=== PATIENT | male | born 1950 | race Caucasian/White ===

== ENCOUNTER → 2016-10-07 | Emergency (ER) | payer MEDICAID ==
[~2016-10-07] VITALS: Ht 177.8 cm; Wt 70.5 kg
[~2016-10-07] MED LIST: GABA-336 PO; GLIP10TA9 PO; LISI-621 PO; LOVA20TA3 PO; METF850T2 PO; NORMAL SALINE 1,000 ML IV ONE
[2016-10-07 13:00] VITALS: Ht 177.8 cm; Wt 70.5 kg
--- NOTE | 2016-10-07 13:17 | ERPDOC ---
Departure Disposition Decision Date: October 07, 2016 Disposition Decision Time: 15:52 Disposition: 01 DISCHARGED HOME, SELF-CARE Impression Impression Impression: Primary Impression: Seizure-like activity Severity: Moderate Condition: Stable Seen By: Physician only Patient Instructions: Nonepileptic Seizures (ED) Problems/Meds/Labs Reviewed?: Yes Medications reviewed and manag: Yes Additional Instructions: No driving an automobile for 6 months or unless cleared by your physician Follow up care ordered?: Yes Mental Status: Alert, Oriented HPI - CVA/Neuro General Chief Complaint: Seizure Stated Complaint: SEIZURES PAST THREE DAYS Time Seen by Provider: 13:14 Source: patient, family Exam Limitations: no limitations HPI - CVA/NEURO Occurred At: other Onset/Timing: Rapid Associated Symptoms: confusion, nausea/vomiting, seizures, weakness, DENIES: fever/chills, loss of consciousness, numbness in legs/feet, ringing in ears, slurred speech, tingling in legs/feet, trouble walking, vision changes Affected Areas/Deficit Locatio: Right Leg, Left Leg Allergies: Coded Allergies: NKDA (Verified Allergy, Unknown, 10/07/16) Past History Past Medical History Metabolic: diabetes, hypertension ENMT: DENIES: allergies Cardiac: DENIES: CHF, angina Respiratory: DENIES: COPD, asthma GI: DENIES: GERD, ulcers Family History Family PMH: NOT FOUND: alcohol abuse, bipolar, depression, drug abuse, migraines, other (no history of seizures aneurysms or brain tumors), schizophrenia Review of Systems Constitutional Constitutional: weakness, DENIES: appetite decrease, chills, dizziness, fever Eyes Vision: blurring, DENIES: double vision, loss of visual velasquez ENMT Sinuses: DENIES: congestion, rhinorrhea Mouth/Throat: DENIES: scratchy throat, sore throat Cardiovascular Cardiac: DENIES: chest pain, dyspnea on exertion Pulmonary Respiratory: DENIES: cough, dyspnea, sputum, tachypnea GI Upper Abdomen: DENIES: nausea, pain, vomiting Lower Abdomen: DENIES: constipation, diarrhea, pain General: DENIES: frequency, urgency Musculoskeletal General: DENIES: cramps, pain, weakness Integumentary Skin: DENIES: color change, itching, rash Neurological General: DENIES: change in strength, headache, numbness, seizures, weakness Psychiatric Psychiatric: DENIES: depression, emotional instability, irritability, nervousness Endocrine Endocrine: DENIES: heat/cold intolerance Hematologic/Lymphatic Hematologic/Lymphatic: DENIES: anemia Physical Exam General General Nourishment: well nourished, well developed General Body Habitus: well groomed Vitals and Pain First Documented Vital Signs Date Time Temp Pulse Resp B/P Pulse Ox O2 Delivery O2 Flow Rate FiO2 10/07/16 13:00 182/99 10/07/16 13:00 98.3 87 18 98 Room Air Weight: Kilograms: Height (feet): Height (inches): Triage Pain Scale: RN VS reviewed by Provider: Yes Eyes (brief) Eyes Brief: found: EOMI, PERRL ENMT (brief) ENMT Brief: FOUND: TM clear, TM good light reflex, ear canals clear, mucosa moist, normal dentition, NOT FOUND: nasal erythema, nasal exudate, nasal swelling, pharnyx erythema, tonsillar deviation Neck (brief) Neck: NOT FOUND: adenopathy, spasm, tenderness Respiratory (brief) Respiratory: FOUND: clear all velasquez, equal bilaterally, NOT FOUND: rales, wheezes Cardiovascular (brief) Cardiac: FOUND: regular rate, regular rhythm Capillary Refill: <2 sec Abdomen (brief) Abdominal Brief: FOUND: bowel normo active x4, soft, NOT FOUND: tender Lymphatic (brief) Lymphatic Brief: NOT FOUND: adenopathy Musculoskeletal (brief) Musculoskeletal Brief: NOT FOUND: spasm, tenderness Integumentary (brief) Integumentary Brief: FOUND: dry, pink, warm, NOT FOUND: rash Neurologic Mental Status: FOUND: alert, oriented GCS Adult : GCS Eye Opening: (4)Spontaneous GCS Verbal: (5)Oriented GCS Motor: (6)Obeys Commands GCS Total: 15 Cranial Nerves: FOUND: other (cranial nerve II through XII intact) Motor : Motor Side: bilateral Motor Location: biceps, triceps, wrist, finger extensors, finger flexors, quadriceps, hamstring, foot extension, foot flexion, radiopharmacist strength Motor Degree: 5 Sensation: FOUND: soft touch intact x4 ext DTR's : DTR Side: bilateral DTR Location: Biceps, Patellar DTR Grade: 2+ Psychiatric (brief) Psychiatric Brief: FOUND: alert, oriented Differential Diagnoses Considering: Thrombotic CVA, Hemorrhagic CVA, Hypertensive Emergency, Hypo/ hypercalcemia, Hypo/hyperglycemia, Hypo/hypernatremia, Meningitis, Psychogenic, TIA Progress Results/Orders Orders Procedure Category Date Status Time Cmp - Comprehensive LAB 10/07/16 In Process Metabolic 13:14 Cbc W/Auto LAB 10/07/16 Complete Diff-Reflex Manual 13:14 Tsh - Thyroid Stim LAB 10/07/16 In Process Hormone 13:14 Bgm (Ed) EDM 10/07/16 Transmitted 13:14 Ct Head W/O Contrast CT 10/07/16 Resulted 13:14 Iv Lock (Ed Only) EDM 10/07/16 Transmitted 13:14 Oxygen Administration EDM 10/07/16 Transmitted 13:14 Nothing By Mouth (Ed EDM 10/07/16 Transmitted Only) 13:14 Prolactin LAB 10/07/16 In Process 13:14 Normal Saline (Normal PHA 10/07/16 Complete Saline Iv) 13:30 UA, LAB 10/07/16 Complete Dip&Micro(Complete) & 14:18 Lab Results Laboratory Tests Test 10/07/16 13:13 10/07/16 14:18 White Blood Count 11.2T/MM3 Red Blood Count 5.02M/MM3 Hemoglobin 15.4GM/DL Hematocrit 45.6% Mean Corpuscular Volume 90.8UM3 Mean Corpuscular Hemoglobin 30.7UUG Mean Corpuscular Hemoglobin Concent 33.8GM/DL RDW Standard Deviation 44.4FL Platelet Count 203T/MM3 Mean Platelet Volume 10.2UM3 Immature Granulocyte % (Auto) 0.2% Neutrophils (%) (Auto) 68.3% Lymphocytes (%) (Auto) 22.9% Monocytes (%) (Auto) 6.6% Eosinophils (%) (Auto) 1.8% Basophils (%) (Auto) 0.2% Absolute Immature Granulocyte (auto 0.02T/MM3 Absolute Neutrophils (auto) 7.7T/MM3 Absolute Lymphocytes (auto) 2.6T/MM3 Absolute Monocytes (auto) 0.7T/MM3 Absolute Eosinophils (auto) 0.2T/MM3 Absolute Basophils (auto) 0.0T/MM3 Turbidity < 20 Sodium Level 142MEQ/L Potassium Level 3.9MEQ/L Chloride Level 107MEQ/L Carbon Dioxide Level 21MEQ/L Anion Gap 14MEQ/L Blood Urea Nitrogen 19.0MG/DL Creatinine 0.9MG/DL Glomerular Filtration Rate Calc 85 BUN/Creatinine Ratio 21RATIO Glucose Level 109MG/DL Calculated Osmolality 276MOSM/KG Calcium Level 9.8MG/DL Total Bilirubin 1.00MG/DL Icterus Index < 2 Aspartate Amino Transf (AST/SGOT) 39U/L Alanine Aminotransferase (ALT/SGPT) 41U/L Alkaline Phosphatase 93U/L Total Protein 7.1G/DL Albumin 4.7G/DL Globulin 2.4G/DL Albumin/Globulin Ratio 2.0RATIO Thyroid Stimulating Hormone (TSH) Pending Prolactin 6.5NG/ML Chemistry Specimen Hemolysis < 15 Urine Collection Type Voided-not cc-midstr Urine Color Yellow Urine Turbidity Clear Urine pH 5.5 Urine Specific [place] <=1.005 Urine Protein Negative Urine Glucose (UA) Negative Urine Ketones Negative Urine Blood 1+ Urine Nitrite Negative Urine Bilirubin Negative Urine Urobilinogen 0.2EU/DL Urine Leukocyte Esterase Negative Urine RBC None seen/HPF Urine WBC None seen/HPF Urine Squamous Epithelial Cells None seen Urine Bacteria None seen Urine Culture Indicated Cult not indicated Medications Current ED Medications Sodium Chloride (Normal Saline IV) 1,000 ml @ 999 mls/hr Q1H1M ONCE IV Last administered on 10/07/16 13:38; Start 10/07/16 at 13:30; Stop 10/07/16 at 14:30 ; Status DC ARCHIE MURRIETA MD October 07, 2016 13:17
[2016-10-07 13:23] LABS: BASOPHILS % (AUTO) 0.2 % (0-2); EOSINOPHILS # (AUTO) 0.2 T/MM3 (0-0.5); EOSINOPHILS % (AUTO) 1.8 % (0-4); HCT - HEMATOCRIT 45.6 % (41-53); HGB - HEMOGLOBIN 15.4 GM/DL (13.5-17.5); IMMATURE GRANULOCYTE # (AUTO) 0.02 T/MM3 (0.00-0.03); IMMATURE GRANULOCYTE % (AUTO) 0.2 % (0.0-0.5); LYMPHOCYTES # (AUTO) 2.6 T/MM3 (1-4.8); LYMPHOCYTES % (AUTO) 22.9 % (23-45); MEAN CORPUSCULAR HGB 30.7 UUG (26-34); MEAN CORPUSCULAR HGB CONC(MCHC 33.8 GM/DL (31-37); MEAN CORPUSCULAR VOLUME 90.8 UM3 (80-100); MEAN PLATELET VOLUME 10.2 UM3 (9.4-12.4); MONOCYTES # (AUTO) 0.7 T/MM3 (0-0.8); MONOCYTES % (AUTO) 6.6 % (0-9.0); NEUTROPHILS #(AUTO)-ABSOLUTE 7.7 T/MM3 (1.8-7.7); NEUTROPHILS % (AUTO) 68.3 % (33-66); RED BLOOD COUNT 5.02 M/MM3 (4.50-5.90); WBC - WHITE BLOOD COUNT 11.2 T/MM3 (4.5-11.0)
[2016-10-07 13:33] LABS: ALBUMIN 4.7 G/DL (3.5-5.0); ALKALINE PHOSPHATASE 93 U/L (38-126); ALT (SGPT) 41 U/L (21-72); ANION GAP 14 MEQ/L (5-15); AST (SGOT) 39 U/L (17-59); BUN/CREATININE RATIO 21 RATIO (6-26); CALCIUM 9.8 MG/DL (8.4-10.2); CHLORIDE 107 MEQ/L (98-107); CO2 - CARBON DIOXIDE 21 MEQ/L (22-30); CREATININE 0.9 MG/DL (0.8-1.5); GLOMERULAR FILTRATION RATE 85; GLUCOSE 109 MG/DL (75-110); POTASSIUM 3.9 MEQ/L (3.6-5); SODIUM 142 MEQ/L (134-144); TOTAL PROTEIN 7.1 G/DL (6.3-8.2)
--- NOTE | 2016-10-07 13:43 | DI ---
Indication: ITS.REASON: sudden onset seizures PROCEDURE: CT HEAD W/O CONTRAST: Encounter: Initial Comparison: None Technique: Axial CT images through the head were performed without contrast. Iterative Reconstruction dose reducing technique was utilized. FINDINGS: The ventricles are of normal size, shape, and contour for the patient's age. The brainstem, cerebellum, and cerebral hemispheres have a normal morphology and CT attenuation. There is no evidence of midline displacement. No hemorrhage, signs of acute territorial stroke, mass effect, mass lesions, or edema is evident. The visualized portions of the skull base, midface, and calvarium demonstrate no abnormality. The paranasal sinuses are well aerated and free of significant disease. The tympanic and mastoid cavities appear normal. IMPRESSION: No acute intracranial abnormality or hemorrhage. .
--- NOTE | 2016-10-07 14:05 | NUR ---
PATIENT VOIDED IN URINAL CLEAR STRAW URING 200CC.. URINE SAMPLE TURNED TO LAB
[2016-10-07 14:26] LABS: BLOOD, URINE 1+ (NEGATIVE); COLOR,URINE YELLOW (YELLOW); LEUKOCYTE ESTERASE ,URINE NEGATIVE (NEGATIVE); NITRITE,URINE NEGATIVE (NEGATIVE); UROBILINOGEN,URINE 0.2 EU/DL (NORMAL)
[2016-10-07 14:35] LABS: BACTERIA,URINE NONE SEEN (NEGATIVE); RBC,URINE NONE SEEN /HPF (0-3); SQUAMOUS EPITHELIAL CELL,UR NONE SEEN; WBC,URINE NONE SEEN /HPF (0-5)
--- NOTE | 2016-10-07 14:53 | NUR ---
IVF IVF COMPLETE AT THIS TIME. IV SALINE LOCKED.
[2016-10-07 15:46] LABS: PROLACTIN 6.5 NG/ML
[2016-10-07 16:00] LABS: THYROID STIM HORMONE-TSH 1.39 MIU/L (0.47-4.68)
[2016-10-07 16:05] VITALS: BP 175/90; PULSE 66; RESP 20; TEMP 98.1; O2SAT 99
== END | disposition home or self-care (01) ==
LOC: ED 12:58
DX: R56.9 Unspecified convulsions (principal)
CPT/HCPCS: 70450; 80053; 81001; 82948; 84146; 84443; 85025; 96360; 96361; 99284; J7030